=== PATIENT | male | born 1945 | race Caucasian/White ===

== ENCOUNTER → 2017-11-28 | Outpatient (CLI) | payer OTHER ==
[2015-04-26 14:40] VITALS: BP 148/90
--- NOTE | 2017-11-28 10:06 | RAD ---
Examination: Chest, PA and lateral views History: SOB and chest pain Findings: Normal heart size and configuration with clear lungs and pleural spaces. A pacemaker is pre sent. Additional surgical device is noted in the thoracic spinal canal. Impression: No acute chest findings. Postsurgical devices as described. The Reported By:
== END ==
LOC: RAD 08:32
PROVIDERS: ATTEND Internal Medicine Cardiovascular Disease
DX: R06.09 Other forms of dyspnea (principal)
CPT/HCPCS: 71046